=== PATIENT | female | born 1995 | race Caucasian/White ===

== ENCOUNTER 2023-10-17 02:45 | Emergency (ER) | payer OTHER ==
[~2023-10-17] VITALS: Ht 160 cm; Wt 169.2 kg
[2023-10-17 02:50] VITALS: BP 112/83; PULSE 83; RESP 14; TEMP 97.8; O2SAT 99
[2023-10-17 03:12] LABS: HEMOGLOBIN 10.7 g/dL (12.0-16.0); RED CELL DISTRIBUTION WIDTH 17.2 % (11.6-13.7)
[2023-10-17 03:13] VITALS: BP 112/83; PULSE 83; RESP 14; TEMP 97.8; O2SAT 99
[2023-10-17] MEDS: MORPHINE SULFATE 4 MG/ML SYR IVP ONE (03:14)
[2023-10-17] MEDS: ONDANSETRON 4 MG/2 ML VIAL IVP ONE (03:14)
[2023-10-17 03:39] LABS: ANION GAP 13.4 (8-16); CALCIUM 9.2 mg/dL (8.5-10.1); CARBON DIOXIDE 25.4 mmol/L (21-32); CREATININE 0.7 mg/dL (0.6-1.3); POTASSIUM 3.8 mmol/L (3.5-5.1)
[2023-10-17 03:54] LABS: HEMATOCRIT 33.7 % (36-48); MEAN CORPUSCULAR HEMOGLOBIN 23 pg (27-31); MEAN CORPUSCULAR HGB CONC 32 g/dL (33-37); MEAN CORPUSCULAR VOLUME 71.7 fL (80-94); PLATELET COUNT (AUTO) 478 K/uL (140-450); WHITE BLOOD COUNT (AUTO) 15.9 K/uL (4.8-10.8)
[2023-10-17 03:55] LABS: EOSINOPHILS % (MANUAL) 3 % (0-4); LYMPHOCYTES % (MANUAL) 24 % (20-46); MONOCYTES % (MANUAL) 8 % (5-12)
[2023-10-17] MEDS: ASPIRIN 325 MG TAB PO ONE (04:09)
[2023-10-17 04:24] LABS: ALBUMIN 3.2 g/dL (3.4-5.0); BILIRUBIN,DIRECT 0.1 mg/dL (0.0-0.3); TOTAL BILIRUBIN 0.3 mg/dL (0.0-1.0); TOTAL PROTEIN, SERUM 7.8 g/dL (6.4-8.2)
[2023-10-17] MEDS ORDERED: ESOM40EC PO (05:48)
== END 2023-10-17 05:58 | disposition home or self-care (01) ==
LOC: MED 02:45
DX: K29.70 Gastritis, unspecified, without bleeding (principal); R07.89 Other chest pain; R06.02 Shortness of breath
CPT/HCPCS: 36415; 76705; 80048; 80076; 82150; 83690; 84484; 85025; 93005; 96374; 96375; 99285; J2270; J2405; Q0092